=== PATIENT | female | born 2000 | race Caucasian/White ===

== ENCOUNTER 2018-06-08 12:35 | Outpatient (CLI) | payer MEDICAID ==
[2018-06-08 13:59] LABS: ADD UMIC YES; UR ASCORBIC ACID NEGATIVE (NEGATIVE); UR BACTERIA FEW /HPF (NONE SEEN); UR BILIRUBIN (Dip) NEGATIVE (NEGATIVE); UR BLOOD (Dip) 3+ mg/dL (NEGATIVE); UR CLARITY SLIGHTLY CLOUDY (CLEAR); UR COLOR YELLOW (YELLOW); UR GLUCOSE (Dip) NEGATIVE (NEGATIVE); UR KETONES (Dip) NEGATIVE (NEGATIVE); UR LEUKOCYTE ESTERASE (Dip) 1+ Leu/ul (NEGATIVE); UR NITRITE (Dip) NEGATIVE (NEGATIVE); UR RBC 125 /HPF (0-5); UR SPECIFIC GRAVITY (Dip) 1.005 (1.003-1.030); UR SQUAMOUS EPITHELIAL CELL FEW /HPF (FEW); UR TOTAL PROTEIN (Dip) NEGATIVE (NEGATIVE); UR UROBILINOGEN (Dip) NEGATIVE (NEGATIVE); UR WBC 14 /HPF (0-5)
[2018-06-08 14:56] LABS: ADD MAN DIFF? NO
[2018-06-08 15:00] LABS: WHITE BLOOD COUNT 9.9 10^3/ul (4.8-10.8)
[2018-06-08 15:00] LABS: BASOPHILS % 0.3 % (0.0-2.0); EOSINOPHILS % 0.3 % (0.0-7.0); HEMATOCRIT 34.5 % (37.0-47.0); HEMOGLOBIN 11.8 g/dl (12.0-16.0); LYMPHOCYTES # 1.5 10^3/ul (0.8-2.9); LYMPHOCYTES % 15.1 % (18.0-55.0); MEAN CORPUSCULAR HEMOGLOBIN 31.6 pg (29.0-33.0); MEAN CORPUSCULAR HGB CONC 34.2 g/dl (32.0-37.0); MEAN CORPUSCULAR VOLUME 92.5 fl (72.0-104.0); MEAN PLATELET VOLUME 8.4 fl (7.4-10.4); MONOCYTE # 0.7 10^3/ul (0.3-0.9); MONOCYTES % 6.6 % (0.0-13.0); NEUTROPHIL # 7.6 10^3/ul (1.6-7.5); NEUTROPHILS % 77.1 % (30.0-74.0); PLATELET COUNT 321 10^3/UL (140-415); RED BLOOD COUNT 3.73 10^6/ul (4.20-5.40); RED CELL DISTRIBUTION WIDTH 13.5 % (11.5-14.5)
[2018-06-08 15:20] LABS: INR 0.93; PROTIME 12.6 Sec (11.9-14.9)
[2018-06-08 15:21] LABS: PARTIAL THROMBOPLASTIN TIME 27.2 Sec (23.0-35.0)
[2018-06-08 15:51] LABS: HEPATITIS B SURFACE ANTIGEN NEGATIVE (NEGATIVE)
[2018-06-09 12:27] LABS: RUBELLA ANTIBODY - IGG 1.07 index; RUBELLA ANTIBODY - IGM <20.00 AU/mL
== END 2018-06-08 16:27 | disposition home or self-care (01) ==
LOC: OBT 12:35 → L-D 12:35 → OBT 16:27
DX: O26.892 Other specified pregnancy related conditions, second trimester (principal); Z3A.21 21 weeks gestation of pregnancy; R31.9 Hematuria, unspecified
CPT/HCPCS: 76775; 76815; 76817; 81001; 85025; 85610; 85730; 86762; 86900; 86901; 87086; 87340

== ENCOUNTER 2018-06-26 12:01 | Outpatient (CLI) | payer MEDICAID ==
[2018-06-26 13:42] LABS: UR BACTERIA FEW /HPF (NONE SEEN); UR MUCUS FEW /HPF (NONE SEEN); UR RBC > 182 /HPF (0-5); UR WBC 19 /HPF (0-5)
[2018-06-26 13:52] LABS: ADD MAN DIFF? NO
[2018-06-26 13:53] LABS: BASOPHILS % 0.3 % (0.0-2.0); EOSINOPHILS % 0.3 % (0.0-7.0); HEMATOCRIT 32.9 % (37.0-47.0); HEMOGLOBIN 11.1 g/dl (12.0-16.0); LYMPHOCYTES # 1.2 10^3/ul (0.8-2.9); LYMPHOCYTES % 14.2 % (18.0-55.0); MEAN CORPUSCULAR HEMOGLOBIN 32.4 pg (29.0-33.0); MEAN CORPUSCULAR HGB CONC 33.7 g/dl (32.0-37.0); MEAN CORPUSCULAR VOLUME 95.9 fl (72.0-104.0); MEAN PLATELET VOLUME 8.6 fl (7.4-10.4); MONOCYTE # 0.5 10^3/ul (0.3-0.9); MONOCYTES % 5.7 % (0.0-13.0); NEUTROPHIL # 6.8 10^3/ul (1.6-7.5); PLATELET COUNT 306 10^3/UL (140-415); RED BLOOD COUNT 3.43 10^6/ul (4.20-5.40); RED CELL DISTRIBUTION WIDTH 13.1 % (11.5-14.5)
[2018-06-26 13:53] LABS: WHITE BLOOD COUNT 8.6 10^3/ul (4.8-10.8)
[2018-06-26 13:55] LABS: ADD UMIC YES; UR ASCORBIC ACID NEGATIVE (NEGATIVE); UR BILIRUBIN (Dip) NEGATIVE (NEGATIVE); UR BLOOD (Dip) 3+ mg/dL (NEGATIVE); UR CLARITY CLEAR (CLEAR); UR COLOR YELLOW (YELLOW); UR GLUCOSE (Dip) NEGATIVE (NEGATIVE); UR KETONES (Dip) NEGATIVE (NEGATIVE); UR LEUKOCYTE ESTERASE (Dip) NEGATIVE Leu/ul (NEGATIVE); UR NITRITE (Dip) NEGATIVE (NEGATIVE); UR SQUAMOUS EPITHELIAL CELL FEW /HPF (FEW); UR TOTAL PROTEIN (Dip) NEGATIVE (NEGATIVE); UR UROBILINOGEN (Dip) NEGATIVE (NEGATIVE)
[2018-06-26] MEDS ORDERED: TERBUTALINE 1 ML (17:03)
[2018-06-26] MEDS: TERBUTALINE 1 MG/ML INJ SC (17:11)
[2018-06-26] MEDS: SOD CHLORIDE 0.9% 1,000 ML IV (17:11)
[2018-06-26] MEDS: CEFTRIAXONE 1 GM/50 ML (PMX) 50 ML IVPB (18:00)
== END 2018-06-26 18:56 | disposition home or self-care (01) ==
LOC: OBT 12:01 → L-D 12:01 → OBT 18:56
DX: O23.42 Unspecified infection of urinary tract in pregnancy, second trimester (principal); Z3A.22 22 weeks gestation of pregnancy
CPT/HCPCS: 76817; 81001; 85025; 87086; 96360; 96365

== ENCOUNTER 2018-09-02 14:55 | Outpatient (CLI) | payer MEDICAID ==
[2018-09-02] MEDS: LACTATED RINGER'S 1,000 ML IV (15:46)
[2018-09-02 16:01] LABS: ADD UMIC YES; UR ASCORBIC ACID NEGATIVE (NEGATIVE); UR BILIRUBIN (Dip) NEGATIVE (NEGATIVE); UR BLOOD (Dip) 3+ mg/dL (NEGATIVE); UR CLARITY SLIGHTLY CLOUDY (CLEAR); UR COLOR RED (YELLOW); UR GLUCOSE (Dip) NEGATIVE (NEGATIVE); UR KETONES (Dip) NEGATIVE (NEGATIVE); UR LEUKOCYTE ESTERASE (Dip) NEGATIVE Leu/ul (NEGATIVE); UR MUCUS FEW /HPF (NONE SEEN); UR NITRITE (Dip) NEGATIVE (NEGATIVE); UR RBC > 182 /HPF (0-5); UR SPECIFIC GRAVITY (Dip) 1.012 (1.003-1.030); UR TOTAL PROTEIN (Dip) 1+ mg/dl (NEGATIVE); UR UROBILINOGEN (Dip) NEGATIVE (NEGATIVE); UR WBC 44 /HPF (0-5)
[2018-09-02 16:03] LABS: ADD MAN DIFF? NO
[2018-09-02 16:05] LABS: BASOPHILS % 0.2 % (0.0-2.0); EOSINOPHILS % 0.2 % (0.0-7.0); HEMATOCRIT 34.3 % (37.0-47.0); HEMOGLOBIN 11.8 g/dl (12.0-16.0); LYMPHOCYTES # 1.3 10^3/ul (0.8-2.9); LYMPHOCYTES % 15.4 % (18.0-55.0); MEAN CORPUSCULAR HGB CONC 34.4 g/dl (32.0-37.0); MEAN PLATELET VOLUME 8.7 fl (7.4-10.4); MONOCYTE # 0.5 10^3/ul (0.3-0.9); MONOCYTES % 6.2 % (0.0-13.0); NEUTROPHIL # 6.5 10^3/ul (1.6-7.5); NEUTROPHILS % 77.5 % (30.0-74.0); PLATELET COUNT 318 10^3/UL (140-415); RED BLOOD COUNT 3.69 10^6/ul (4.20-5.40); RED CELL DISTRIBUTION WIDTH 12.3 % (11.5-14.5)
[2018-09-02 16:05] LABS: WHITE BLOOD COUNT 8.4 10^3/ul (4.8-10.8)
[2018-09-02] MEDS: TERBUTALINE 1 MG/ML INJ SC (16:27)
[2018-09-02] MEDS: ACETAMINOPHEN 1000MG/100ML IV 100 ML IVPB (17:36)
== END 2018-09-02 18:45 | disposition home or self-care (01) ==
LOC: OBT 14:55 → L-D 14:55 → OBT 18:45
DX: O26.893 Other specified pregnancy related conditions, third trimester (principal); Z3A.31 31 weeks gestation of pregnancy; R10.9 Unspecified abdominal pain
CPT/HCPCS: 76817; 76818; 81001; 85025; 87086; 96360; 96366

== ENCOUNTER 2018-10-11 14:16 | Outpatient (CLI) | payer OTHER, MEDICAID ==
[2018-10-11 15:26] LABS: RUPTURE FETAL MEMBRANES NEGATIVE (NEGATIVE)
== END 2018-10-11 16:15 | disposition home or self-care (01) ==
LOC: OBT 14:16 → L-D 14:17 → OBT 16:15
DX: O42.92 Full-term premature rupture of membranes, unspecified as to length of time between rupture and onset of labor (principal); Z3A.37 37 weeks gestation of pregnancy
CPT/HCPCS: 76818; 84112

== ENCOUNTER 2018-10-12 07:42 | Inpatient (IN) | payer OTHER ==
[2018-10-12 08:23] LABS: ADD UMIC YES; UR ASCORBIC ACID NEGATIVE (NEGATIVE); UR BILIRUBIN (Dip) NEGATIVE (NEGATIVE); UR BLOOD (Dip) 1+ mg/dL (NEGATIVE); UR CLARITY CLEAR (CLEAR); UR COLOR YELLOW (YELLOW); UR GLUCOSE (Dip) NEGATIVE (NEGATIVE); UR KETONES (Dip) NEGATIVE (NEGATIVE); UR LEUKOCYTE ESTERASE (Dip) NEGATIVE Leu/ul (NEGATIVE); UR MUCUS FEW /HPF (NONE SEEN); UR NITRITE (Dip) NEGATIVE (NEGATIVE); UR RBC 14 /HPF (0-5); UR SPECIFIC GRAVITY (Dip) 1.016 (1.003-1.030); UR SQUAMOUS EPITHELIAL CELL FEW /HPF (FEW); UR TOTAL PROTEIN (Dip) NEGATIVE (NEGATIVE); UR UROBILINOGEN (Dip) 1+ mg/dL (NEGATIVE); UR WBC 4 /HPF (0-5)
[2018-10-12] MEDS: LACTATED RINGER'S 1,000 ML IV ×2 (09:39→10:55)
[2018-10-12] MEDS: morphine 10 MG INJ IM (09:39)
[2018-10-12] MEDS: ONDANSETRON 4 MG INJ IV (12:10)
[2018-10-12] MEDS ORDERED: morphine 10 MG INJ IM (13:30)
[2018-10-12] MEDS ORDERED: ONDANSETRON 4 MG INJ IV (13:30)
[2018-10-13] MEDS: LACTATED RINGER'S 1,000 ML IV ×6 (03:43→22:13)
[2018-10-13] MEDS ORDERED: LIDOCAINE 1% (MPF) 30 ML INJ INJ (08:30)
[2018-10-13] MEDS ORDERED: METHYLERGONOVINE 0.2 MG INJ IM (08:30)
[2018-10-13] MEDS ORDERED: OXYTOCIN 30 UNITS/LR 500 ML IV ×2 (08:30)
[2018-10-13] MEDS ORDERED: IBUPROFEN 600 MG TAB PO (08:30)
[2018-10-13] MEDS ORDERED: CARBOPROST 250 MCG INJ IM (08:30)
[2018-10-13] MEDS ORDERED: MISOPROSTOL 200 MCG TAB PR (08:30)
[2018-10-13] MEDS ORDERED: BUTORPHANOL 2 MG INJ IV (08:30)
[2018-10-13 10:42] LABS: ADD MAN DIFF? NO
[2018-10-13 10:47] LABS: BASOPHILS % 0.4 % (0.0-2.0); EOSINOPHILS % 0.4 % (0.0-7.0); LYMPHOCYTES # 1.3 10^3/ul (0.8-2.9); MEAN CORPUSCULAR HEMOGLOBIN 31.6 pg (29.0-33.0); MEAN CORPUSCULAR HGB CONC 34.2 g/dl (32.0-37.0); MEAN CORPUSCULAR VOLUME 92.5 fl (72.0-104.0); MEAN PLATELET VOLUME 9.5 fl (7.4-10.4); MONOCYTE # 0.4 10^3/ul (0.3-0.9); MONOCYTES % 6.1 % (0.0-13.0); NEUTROPHIL # 5.3 10^3/ul (1.6-7.5); NEUTROPHILS % 74.7 % (30.0-74.0); PLATELET COUNT 228 10^3/UL (140-415); RED BLOOD COUNT 4.11 10^6/ul (4.20-5.40); RED CELL DISTRIBUTION WIDTH 12.4 % (11.5-14.5)
[2018-10-13 10:47] LABS: WHITE BLOOD COUNT 7.1 10^3/ul (4.8-10.8)
[2018-10-13 11:08] LABS: INR 0.87; PARTIAL THROMBOPLASTIN TIME 26.8 Sec (23.0-35.0); PROTIME 11.9 Sec (11.9-14.9); PT RATIO 0.9
[2018-10-13 12:04] LABS: HEPATITIS B SURFACE ANTIGEN NEGATIVE (NEGATIVE)
[2018-10-13] MEDS ORDERED: AMPICILLIN 2 GM/NS (PMX) 100 ML (14:02)
[2018-10-13 15:23] LABS: RAPID PLASMA REAGIN NONREACTIVE (NR)
[2018-10-13] MEDS ORDERED: FENTAnyl 2MCG/ML-ROPIV 0.2% 100 ML (16:20)
[2018-10-13] MEDS ORDERED: DIPHENHYDRAMINE 50 MG INJ IV (16:30)
[2018-10-13] MEDS ORDERED: NALOXONE (0.4 MG/ML) INJ IV (16:30)
[2018-10-13] MEDS ORDERED: ONDANSETRON 4 MG INJ IV (16:30)
[2018-10-13] MEDS: CLINDAMYCIN 600 MG/D5W (PMX) 50 ML IVPB (17:40)
[2018-10-14] MEDS: CLINDAMYCIN 600 MG/D5W (PMX) 50 ML IVPB ×3 (00:19→12:43)
[2018-10-14] MEDS: FENTAnyl 2MCG/ML-ROPIV 0.2% 100 ML BAG EPI ×3 (00:25→11:53)
[2018-10-14] MEDS: LACTATED RINGER'S 1,000 ML IV ×3 (02:39→06:20)
[2018-10-14] MEDS: OXYTOCIN 30 UNITS/LR 500 ML IV ×2 (11:53→16:25)
[2018-10-14] MEDS ORDERED: ACETAMINOPHEN 500 MG TAB PO (15:43)
[2018-10-14] MEDS: MINERAL OIL LIGHT 10 ML VIAL TOP (16:03)
[2018-10-14] MEDS: KETOROLAC 30 MG INJ IV (16:04)
[2018-10-14] MEDS: LACTATED RINGER'S 1,000 ML IV* ×2 (18:14→22:36)
[2018-10-14] MEDS ORDERED: WITCH HAZEL/GLYCERIN PAD PR (18:30)
[2018-10-14] MEDS ORDERED: DIBUCAINE 1% 30 GM OINT TOP (18:30)
[2018-10-14] MEDS ORDERED: BENZOCAINE 20% 56 ML SPRAY TOP (18:30)
[2018-10-14] MEDS ORDERED: MISOPROSTOL 200 MCG TAB PR (18:30)
[2018-10-14] MEDS: IBUPROFEN 600 MG TAB PO (18:30)
[2018-10-14] MEDS ORDERED: CARBOPROST 250 MCG INJ IM (18:30)
[2018-10-14] MEDS ORDERED: ZOLPIDEM 5 MG TAB PO (18:30)
[2018-10-14] MEDS ORDERED: METHYLERGONOVINE 0.2 MG INJ IM (18:30)
[2018-10-14] MEDS ORDERED: OXYTOCIN 30 UNITS/LR 500 ML IV (18:30)
[2018-10-14] MEDS: HYDROCODONE/APAP (5/325) TAB PO (18:40)
[2018-10-14] MEDS: SENNA/DOCUSATE NA (8.6MG/50MG) TAB PO (22:33)
[2018-10-14] MEDS: MAGNESIUM HYDROXIDE 30ML CUP PO (22:33)
[2018-10-15] MEDS ORDERED: CEPHALEXIN 500 MG CAP PO
[2018-10-15] MEDS: IBUPROFEN 600 MG TAB PO ×4 (00:08→18:15)
[2018-10-15] MEDS: NITROFURANTOIN (SR) 100 MG CAP PO ×3 (00:12→21:29)
[2018-10-15] MEDS: LANOLIN HPA 1 PKT TOP (04:16)
[2018-10-15 06:44] LABS: ADD MAN DIFF? NO
[2018-10-15 06:47] LABS: BASOPHILS % 0.4 % (0.0-2.0); EOSINOPHILS # 0.1 10^3/ul (0.0-0.5); EOSINOPHILS % 0.5 % (0.0-7.0); HEMATOCRIT 26.7 % (37.0-47.0); HEMOGLOBIN 9.3 g/dl (12.0-16.0); LYMPHOCYTES % 18.2 % (18.0-55.0); MEAN CORPUSCULAR HEMOGLOBIN 32.6 pg (29.0-33.0); MEAN CORPUSCULAR HGB CONC 34.8 g/dl (32.0-37.0); MEAN CORPUSCULAR VOLUME 93.7 fl (72.0-104.0); MEAN PLATELET VOLUME 9.7 fl (7.4-10.4); MONOCYTE # 0.7 10^3/ul (0.3-0.9); MONOCYTES % 6.1 % (0.0-13.0); NEUTROPHIL # 7.9 10^3/ul (1.6-7.5); NEUTROPHILS % 74.1 % (30.0-74.0); PLATELET COUNT 173 10^3/UL (140-415); RED BLOOD COUNT 2.85 10^6/ul (4.20-5.40); RED CELL DISTRIBUTION WIDTH 12.2 % (11.5-14.5)
[2018-10-15 06:47] LABS: WHITE BLOOD COUNT 10.7 10^3/ul (4.8-10.8)
[2018-10-15] MEDS: MAGNESIUM HYDROXIDE 30ML CUP PO ×2 (09:00→21:00)
[2018-10-15] MEDS: LACTATED RINGER'S 1,000 ML IV* ×2 (10:14→18:14)
[2018-10-15] MEDS: HYDROCODONE/APAP (5/325) TAB PO (13:14)
[2018-10-15] MEDS: SENNA/DOCUSATE NA (8.6MG/50MG) TAB PO ×2 (13:14→21:29)
[2018-10-16] MEDS: IBUPROFEN 600 MG TAB PO ×4 (00:52→17:05)
[2018-10-16] MEDS: LACTATED RINGER'S 1,000 ML IV* (02:14)
[2018-10-16] MEDS: DIPHTH/TET/ACEL PERTUSS (ADULT) 0.5 ML VIAL IM* (07:09)
[2018-10-16] MEDS: MEASLES,MUMPS,RUBELLA VACCINE INJ SC* (07:10)
[2018-10-16] MEDS: VARICELLA VACCINE LIVE/PF 1,350 UNIT/0.5 ML ML SC* (07:10)
[2018-10-16] MEDS: MAGNESIUM HYDROXIDE 30ML CUP PO (08:48)
[2018-10-16] MEDS: NITROFURANTOIN (SR) 100 MG CAP PO (08:57)
[2018-10-16] MEDS: SENNA/DOCUSATE NA (8.6MG/50MG) TAB PO (08:57)
== END 2018-10-16 17:39 | disposition home or self-care (01) | DRG 807 ==
LOC: OBT 07:42 → L-D 10-13 09:10 → PP1 10-14 17:55 → L-D 07:43 → OBT 14:31 → L-D 14:32
PROC: 10E0XZZ Delivery of Products of Conception, External Approach (ICD-10-PCS; principal; 2018-10-14)
PROC: 0W8NXZZ Division of Female Perineum, External Approach (ICD-10-PCS; 2018-10-14)
DX: O80 Encounter for full-term uncomplicated delivery (principal); Z37.0 Single live birth; Z3A.37 37 weeks gestation of pregnancy
CPT/HCPCS: 62322; 76815; 76818; 81001; 85025; 85610; 85730; 86592; 86850; 86900; 86901; 87086; 87340; 90716; 96360; 96361; 96372